=== PATIENT | male | born 2000 | race Two or more races ===

== ENCOUNTER 2024-12-24 08:51 | Emergency (ER) | payer MEDICAID, SELFPAY ==
[2024-12-24 08:52] VITALS: BMI 39.4
[2024-12-24 09:15] VITALS: BP 123/80; PULSE 87; RESP 20; TEMP 36.9; O2SAT 97; BMI 38.7
--- NOTE | 2024-12-24 09:21 | XR_ITS ---
Examination: CT abdomen and pelvis without contrast. Coronal 3-D reconstructions. Sagittal 2-D reconstructions. Date and time of exam:December 24, 2024 1023 hours INDICATIONS: Onset left-sided flank pain beginning 2 days ago CTDI: vol (mGy): 13.3 DLP: (mGycm): 837 Technique: Axial images of the abdomen have been obtained, 3 mm slice thickness Intravenous contrast material has not been administered. Low dose protocols were performed. One or more of the following dose reduction techniques were used; automated exposure control, adjustment of the mA and/or KV according to patient size, use of iterative reconstruction technique. Findings: Diffuse fatty infiltration throughout the liver no focal liver or splenic lesions No gallstones No pancreatic or adrenal mass No renal or ureteral calculi, no hydronephrosis No pericecal inflammatory change No diverticulitis Intact urinary bladder IMPRESSION: No renal or ureteral calculi, no hydronephrosis No perinephric stranding No bladder mass or bladder calculi
--- NOTE | 2024-12-24 09:22 | PD.EDRME ---
Rapid Medical Screening Exam RME Arrival date/time: 12/24/24 08:51 24-year-old male with no known medical history presents to the emergency room with a chief complaint of left flank pain and back pain x 1 day I have greeted and performed a focused initial assessment of this patient. A comprehensive ED assessment and evaluation of the patient, analysis of all test results, and completion of the medical decision making process will be conducted by additional ED providers. Chief Complaint: Back Pain/Injury Time Seen by Provider: 12/24/24 09:14 Vital signs: Vital Signs Temperature 98.4 F 12/24/24 09:15 Pulse Rate 87 12/24/24 09:15 Respiratory Rate 20 12/24/24 09:15 Blood Pressure 123/80 12/24/24 09:15 Pulse Oximetry (%) 97 12/24/24 09:15 Oxygen Delivery Method Room Air 12/24/24 09:15 Vital signs reviewed by provider: Yes
[2024-12-24] MEDS: KETOROLAC INJ 60 MG/2 ML VIAL 30 MG IM (09:33)
[2024-12-24 10:01] LABS: Basophils % (Auto) 0 % (0-2.5); Eosinophils # (Auto) 0.1 Thou/mm3 (0.0-0.5); Eosinophils % (Auto) 3 % (0-10); Hematocrit 43.6 % (41.0-53.0); Hemoglobin 14.7 g/dL (13.5-16.0); Immature Granulocytes % (Auto) 0 % (0-0); Immature Granulocytes Auto 0.01 Thou/mm3 (0.00-0.00); Lymphocytes # (Auto) 1.7 Thou/mm3 (1.0-4.8); Lymphocytes % (Auto) 38 % (10-50); Mean Corpuscular HGB Conc 33.7 g/dl (31.0-37.0); Mean Corpuscular Hemoglobin 28.2 pg (25.0-35.0); Mean Corpuscular Volume 84 fL (80-100); Monocytes # (Auto) 0.4 Thou/mm3 (0.0-0.8); Monocytes % (Auto) 9 % (0-12); Neutrophils # (Auto) 2.2 Thou/mm3 (1.8-7.7); Neutrophils % (Auto) 49 % (37-80); Nucleated Red Blood Cell % 0 /100 WBC (0); Platelet Count 233 Thou/mm3 (140-440); RDW Standard Deviation 39.4 fL (35.1-43.9); Red Blood Count 5.21 Miln/mm3 (4.50-5.90); White Blood Count 4.6 Thou/mm3 (3.8-10.6)
[2024-12-24 10:52] LABS: Collection Type, Urine Clean Catch; Squamous Epithelial Cell,Urine 0 /hpf (0-5)
[2024-12-24 11:05] VITALS: BP 117/74; PULSE 67; RESP 18; TEMP 37.1; O2SAT 98
[2024-12-24 11:07] LABS: Alanine Aminotransferase 53 U/L (10-49); Albumin, Serum 4.7 gm/dL (3.5-5.0); Albumin/Globulin Ratio 1.6 (1.2-2.2); Alkaline Phosphatase 61 U/L (46-116); Anion Gap 8 (7-16); Aspartate Amino Transferase 40 U/L (0-34); BUN/Creatinine Ratio 13 Ratio (12-20); Bilirubin,Total 0.4 mg/dL (0.3-1.2); Blood Urea Nitrogen 10 mg/dL (9-23); Calcium 8.8 mg/dL (8.3-10.6); Calcium (Corrected) 8.8 mg/dL (8.5-10.1); Carbon Dioxide 26.9 mMol/L (20.0-31.0); Chloride 106 mMol/L (98-107); Creatinine (Component) 0.8 mg/dL (0.6-1.3); Estimated Creatinine Clearance 183.6 mL/min (>60); Globulin 2.9 gm/dL (2.3-3.5); Glucose 97 mg/dL (74-106); Lipase 30 U/L (12-53); Osmolality,Calculated 280 (275-295); Potassium 4.4 mMol/L (3.4-5.1); Sodium 141 mMol/L (136-145); Total Protein 7.6 gm/dL (5.7-8.2); eGFR > 60 See Note
[2024-12-24 11:23] LABS: Bilirubin,Urine Negative (Negative); Blood,Urine Negative (Negative); Clarity,Urine Clear (Clear/Hazy); Color,Urine Yellow (Lt Yel-Yel); Glucose, Urine Negative (Negative); Hyaline Casts,Urine < 1 /hpf (0-1); Ketones,Urine Negative (Negative); Leukocyte Esterase,Urine Negative (Negative); Nitrite,Urine Negative (Negative); Protein,Urine Trace (Neg - Trace); RBC,Urine 3 /hpf (0-3); Specific Gravity,Urine 1.028 (1.001-1.035); Urobilinogen,Urine Negative mg/dL (0.0-1.0); WBC,Urine 1 /hpf (0-5)
[2024-12-24 13:10] VITALS: BP 120/81; PULSE 63; RESP 18; TEMP 36.6; O2SAT 99
--- NOTE | 2024-12-24 13:18 | EDNOTE_ITS ---
ED General RME/HPI General Chief complaint: Back Pain/Injury Stated complaint: L LOWER BACK PAIN SINCE LAST NIGHT Time Seen by Provider: 12/24/24 09:14 Arrival date/time: 12/24/24 08:51 CC: Left low back pain HPI ongoing since last night. Patient was vacuuming then it started happening. Patient put IcyHot on it and to generic ibuprofen or Tylenol is not sure which 1. Patient continues to have pain. Patient denies bowel or bladder symptoms saddle anesthesia numbness tingling or weakness in the lower extremities. They denies painful urination bloody urination nausea vomiting or diarrhea. Patient reports significant improvement after the injection the medicines while in the waiting room. RME / HPI RME / HPI narrative: 12/24/24 08:51 24-year-old male with no known medical history presents to the emergency room with a chief complaint of left flank pain and back pain x 1 day I have greeted and performed a focused initial assessment of this patient. A comprehensive ED assessment and evaluation of the patient, analysis of all test results, and completion of the medical decision making process will be conducted by additional ED providers. Related Data Previous Rx's ?Medication ?Instructions ?Recorded cyclobenzaprine 10 mg tablet 10 mg PO HS #10 tabs 12/06 05/02 meloxicam 7.5 mg tablet 7.5 mg PO QDAY #10 tabs 12/06 05/02 Allergies Allergy/AdvReac Type Severity Reaction Status Date / Time No Known Allergies Allergy Verified 12/24/24 08:55 Review of Systems Review of Systems Narrative Review of Systems: GEN: No fever, no chills, no weight loss EYES: No discharge, no visual changes, no pain HEENT: No ear pain, no congestion, no sore throat PULM: No shortness of breath, no cough, no congestion CV: No chest pain, no dyspnea on exertion, no palpitations GI: No nausea, no vomiting, no diarrhea, no pain, no constipation : No frequency, no urgency, no dysuria MUSC/SKEL: No joint pain, + back pain SKIN: No rash PSYCH: No hallucinations, no depression HEME/LYMPH: No easy bleeding or bruising tendencies NEURO: No weakness, no headache Past Medical History Social History SMOKING STATUS: Former smoker ED Exam Narrative Physical exam: [General: Obese not in any acute distress Head normocephalic HEENT: Within acceptable limits Neck is supple nontender Chest equal chest rise nontender to palpation Respiratory: Clear to auscultation no wheezes crackles or rubs CV: Rate rhythm is regular no murmurs rubs or clicks Abdomen is distended secondary to body habitus soft nontender no masses positive bowel sounds all 4 quadrants Back: Left lumbar paraspinal tenderness with palpation no spinous process tenderness no right-sided tenderness no thoracic or cervical tenderness. Skin: Intact no petechiae rash induration ulceration or crepitus Extremities: Moving all extremity against resistance cap refill less than 2 seconds neurosensory intact Neuro: Awake alert oriented x3 Glascow coma 15 no focal deficits] Course Quality Measures none Orders Category Date Time Status CT abdomen pelvis wo con Stat Exams 12/24/24 09:21 Completed CBC Stat Lab 12/24/24 09:41 Completed CMP [Comprehensive Metabolic Panel] Stat Lab 12/24/24 09:41 Completed Lipase Stat Lab 12/24/24 09:41 Completed UA [Urinalysis] Stat Lab 12/24/24 10:40 Completed Urine Culture Stat Lab 12/24/24 10:40 Received Ketorolac Inj [Toradol Inj] Med 12/24/24 09:21 Discontinued 30 mg IM X1 ONE Vital Signs Vital signs: Vital Signs Temperature 98.4 F 12/24/24 09:15 Pulse Rate 87 12/24/24 09:15 Respiratory Rate 20 12/24/24 09:15 Blood Pressure 123/80 12/24/24 09:15 Pulse Oximetry (%) 97 12/24/24 09:15 Oxygen Delivery Method Room Air 12/24/24 09:15 Discharge Plan Plan Patient Disposition: HOME (Self Care) Prescriptions/Referrals Prescriptions/Med Rec: New cyclobenzaprine 10 mg tablet 10 mg PO HS Qty: 10 0RF meloxicam 7.5 mg tablet 7.5 mg PO QDAY Qty: 10 0RF Referrals: Blayne Womack MD [Physician] - In 1 week No Primary/Family,Physician [Primary Care Provider] - In 1 week Problem List Clinical Impression: Strain of lumbar region Patient/Caregiver Discharge Instructions Other Activity Instructions:: Take medication prescribed for temporary relief if there is a worsening of symptoms with follow-up with your primary care doctor. Education Materials: ED Back Sprain/Strain Print Language: Luxembourgish Stand Alone Forms: [employer] Info., Patient Portal Info Letter, Work/School Release PA/IMPERSONATOR CHARACTER Supervising Physician PA/IMPERSONATOR CHARACTER Supervising Physician: Vero Lucas ENP MDM Clinical Information Provided by: patient Medical Records reviewed [facility] Meds/Rx considered, not ordered None Labs/Rad/Tests considered, not ordered None Chronic Illness/Social Conditions which may negatively complicate care or outcome(s)-explain: None or not applicable EKG EKG not done Labs Labs: interpreted by me Lab(s) Interpretation(s): CBC shows no acute leukocytosis anemia thrombocytopenia CMP shows no significant electrolyte imbalances or renal parent very mild AST and ALT elevation no other transaminitis or T. bili elevation. Urine is negative for any acute finding Imaging Imaging Interpretation(s): CT of the abdomen pelvis is negative as interpreted by me read by radiology. Medication Administration(s) Medication Administration History Discontinued Medications Ketorolac Tromethamine (Ketorolac Inj 60 Mg/2 Ml Vial) 30 mg IM X1 ONE Stop: 12/24/24 09:22 Last Admin: 12/24/24 09:33 Dose: 30 mg Documented By: DO Diagnosis Differential Diagnosis ED Complaint MDM: Urolithiasis cholecystitis hydroureter hydronephrosis
== END 2024-12-24 13:34 | disposition home or self-care (01) ==
PROVIDERS: Nurse Practitioner Family; Emergency Provider Emergency Medicine
DX: S39.012A Strain of muscle, fascia and tendon of lower back, initial encounter (principal); R10.9 Unspecified abdominal pain; X58.XXXA Exposure to other specified factors, initial encounter; Y93.E3 Activity, vacuuming
CPT/HCPCS: 36415; 74176; 80053; 81001; 83690; 85025; 87086; 96372; 99284; J1885

== ENCOUNTER 2025-01-21 23:33 | Emergency (ER) | payer MEDICAID, SELFPAY ==
[2025-01-21 23:33] VITALS: BMI 39.4
[2025-01-21 23:57] VITALS: BP 129/68; PULSE 94; RESP 18; TEMP 36.7; O2SAT 95
--- NOTE | 2025-01-22 00:18 | EDNOTE_ITS ---
ED Back Injury Pain RME/HPI General Chief Complaint: Back Pain/Injury Stated Complaint: RIGHT SCIATIC PAIN Time Seen by Provider: 01/22/25 00:17 Source: patient Arrival date/time: 01/21/25 23:33 Mode of arrival: ambulatory Limitations: no limitations RME / HPI RME / HPI Narrative: 24-year-old male presents to the emergency department with a complaint of his sciatica as acting up. Denies trauma, denies heavy lifting, denies excessive exercise, denies excessive ambulation. MD Complaint: back pain Onset (ago): day(s) (X 1 day) Duration: constant Similar Symptoms Previously: Yes Location: lumbar spine Severity: moderate Severity scale (1-10): 5 Related Data Previous Rx's ?Medication ?Instructions ?Recorded cyclobenzaprine 10 mg tablet 10 mg PO HS #10 tabs 12/06 05/02 meloxicam 7.5 mg tablet 7.5 mg PO QDAY #10 tabs 12/06 05/02 cyclobenzaprine 10 mg tablet 10 mg PO HS #20 tabs 01/06 03/01 naproxen 500 mg tablet 500 mg PO BID #20 tabs 01/22 Allergies Allergy/AdvReac Type Severity Reaction Status Date / Time No Known Allergies Allergy Verified 01/21/25 23:34 Review of Systems Constitutional Constitutional: Reports system reviewed and no additional complaints, except as documented Eyes Eyes: Reports system reviewed and no additional complaints, except as documented, Denies dry eyes, Denies exophthalmos and Reports floaters Cardiovascular Cardiovascular: Denies chest pain with activity and Denies claudication ED Exam Narrative Physical exam: Leg raises are negative for radiculopathy positive for low back pain. Patient is able to flex at the waist and touch his toes. Patient is able to twist left and right as well as bend left and right. Complains of back pain upon doing so. Spine is midline and patient ambulates without assistance. There is no apparent neurofocal deficit present. General Limitations: Present no limitations General appearance: Present alert and in no apparent distress Head Head exam: Present atraumatic Eye Eye exam: Present normal appearance and EOMI ENT ENT exam: Present normal exam, normal oropharynx and mucous membranes moist Neck Neck exam: Present normal inspection, full ROM and trachea midline Chest Chest inspection: Present normal inspection Respiratory Respiratory exam: Present normal lung sounds bilaterally Cardiovascular Cardiovascular exam: Present regular rate, normal rhythm and normal heart sounds Abdominal Exam Abdominal exam: Present soft and normal bowel sounds Extremities Exam Extremities exam: Present normal inspection and full ROM Back Exam Back exam: Present normal inspection and full ROM Neurological Exam Neurological exam: Present alert, oriented X3 and CN II-XII intact Psychiatric Psychiatric exam: Present normal affect and normal mood Skin Skin exam: Present warm, dry, intact and normal color Course Course Course Narrative: Patient will have Toradol 30 mg IM. Quality Measures none Orders Category Date Time Status Ketorolac Inj [Toradol Inj] Med 01/22/25 00:18 Discontinued 30 mg IM X1 ONE Ordered Vital Signs Vital signs: Vital Signs Temperature 98.1 F 01/21/25 23:57 Pulse Rate 94 01/21/25 23:57 Respiratory Rate 18 01/21/25 23:57 Blood Pressure 129/68 01/21/25 23:57 Pulse Oximetry (%) 95 01/21/25 23:57 Oxygen Delivery Method Room Air 01/21/25 23:57 Pulse ox room air is 95% Back Pain / Injury MDM Narrative MDM Narrative:: Patient will have Toradol 30 mg and I will send to the pharmacy of his choice Naprosyn 500 mg 1 p.o. twice daily #20 and Flexeril 10 mg 1 p.o. 3 times daily #10. Patient will be discharged in no apparent distress and he is follow-up primary care physician within a week of today's visit or otherwise if he is worse he may return. Patient data External records reviewed:: Other (specify) Clinical information provided by:: none Social determinants that could affect healthcare access:: none Patient has the following chronic illnesses:: Sciatica How is presenting disease/condition affected by chronic disease/condition?: caused by (Movement) Evaluation data The following diagnostics were reviewed and interpreted by me:: other (specify) (N/A) Lab and/or radiology exams considered but not ordered:: N/A Interpretation Summary: N/A Medications / Prescriptions Medications or Prescriptions considered but not ordered:: N/A Medication administrations:: Medication Administration History Discontinued Medications Ketorolac Tromethamine (Ketorolac Inj 60 Mg/2 Ml Vial) 30 mg IM X1 ONE Stop: 01/22/25 00:19 Given Consultations Consultation(s) initiated? (list below): No Diagnosis Differential diagnosis back pain/injury: lumbar radiculopathy, sciatica, strain of lumbar region, renal colic and pyelonephritis Most likely diagnosis given after review of the tests above:: N/A Admission Indicated Admission indicated?: not indicated Admission Request Was there a request for admission?: No Admission Attestation Admission request attestation: N/A Disposition Plan Disposition Plan: Discharge Discharge Attestation Discharge Attestation: The patient and all family members were given an opportunity to ask questions and understood the discharge instructions. Discharge instructions specifically effects, indications for sooner follow up or return to the emergency department, and the expected course of current diagnosis. Patient condition: Stable Discharge Plan Plan Patient Disposition: HOME (Self Care) Discharge Disposition comment: Discharge in no apparent distress Patient condition on transfer: Stable Prescriptions/Referrals Prescriptions/Med Rec: New cyclobenzaprine 10 mg tablet 10 mg PO HS Qty: 20 0RF naproxen 500 mg tablet 500 mg PO BID Qty: 20 0RF No Action cyclobenzaprine 10 mg tablet 10 mg PO HS Qty: 10 0RF meloxicam 7.5 mg tablet 7.5 mg PO QDAY Qty: 10 0RF Problem List Clinical Impression: Sciatica Patient/Caregiver Discharge Instructions Discharge Activity: activity as tolerated Education Materials: Common Spine and Disk Problems Print Language: Prydeinig Stand Alone Forms: [employer] Info., Patient Portal Info Letter PA/RESTORATION OFFICER Supervising Physician PA/RESTORATION OFFICER Supervising Physician: Eusebia
[2025-01-22] MEDS: KETOROLAC INJ 60 MG/2 ML VIAL 30 MG IM (00:27)
== END 2025-01-22 00:43 | disposition home or self-care (01) ==
LOC: SERX 01-22 01:13
PROVIDERS: Emergency Provider Emergency Medicine; PCP Internal Medicine
DX: M54.41 Lumbago with sciatica, right side (principal)
CPT/HCPCS: 96372; 99283; J1885

== ENCOUNTER 2025-04-25 17:59 | Emergency (ER) | payer MEDICAID, SELFPAY ==
[2025-04-25 18:25] VITALS: BP 138/78; PULSE 85; RESP 17; TEMP 36.9; O2SAT 96
--- NOTE | 2025-04-25 18:26 | XR_ITS ---
Examination: Wrist, left 3 views Technique: Wrist AP, oblique, lateral 3 views Date and time of exam: April 25, 2025 1841 hrs. Indications: Patient fell today with into the wrist, wrist pain. Findings: No acute fracture No dislocation No foreign body Impression: No acute fracture
--- NOTE | 2025-04-25 18:43 | EDNOTE_ITS ---
Upper Extremity Injury RME/HPI General Chief Complaint: Hand/Wrist Problems Stated Complaint: LEFT WRIST PAIN Time Seen by Provider: 04/25/25 18:34 Arrival date/time: 04/25/25 17:59 25M with no significant PMH presents to ED with L wrist pain after slip and fall in shower. No other complaints/known injuries. Limitations: no limitations Related Data Previous Rx's ?Medication ?Instructions ?Recorded cyclobenzaprine 10 mg tablet 10 mg PO HS #10 tabs 12/06 05/02 meloxicam 7.5 mg tablet 7.5 mg PO QDAY #10 tabs 12/06 05/02 cyclobenzaprine 10 mg tablet 10 mg PO HS #20 tabs 01/06 03/01 naproxen 500 mg tablet 500 mg PO BID #20 tabs 01/22 Allergies Allergy/AdvReac Type Severity Reaction Status Date / Time No Known Allergies Allergy Verified 01/21/25 23:34 Review of Systems Review of Systems Systems Reviewed: All systems reviewed, normal except as documented Musculoskeletal Musculoskeletal: Reports as per HPI and Reports arthralgias Past Medical History Social History SMOKING STATUS: Current every day smoker ED Exam General Limitations: Present no limitations General appearance: Present alert and in no apparent distress Head Head exam: Present atraumatic Neck Neck exam: Present normal inspection, full ROM and trachea midline Chest Chest inspection: Present normal inspection and symmetric chest wall rise Extremities Exam Extremities exam: Present full ROM Expanded Upper Extremity Exam Forearm/Wrist exam: Present full ROM (L) and tenderness Neurological Exam Neurological exam: Present alert, oriented X3 and CN II-XII intact Psychiatric Psychiatric exam: Present normal affect and normal mood Skin Skin exam: Present warm, dry, intact and normal color Course Quality Measures none Orders Category Date Time Status benjamin wrap [Splint / Immobilizer] STAT Care 04/25/25 19:21 Completed XR wrist comp LT min 3V Stat Exams 04/25/25 18:26 Completed Vital Signs Vital signs: Vital Signs Temperature 98.4 F 04/25/25 18:25 Pulse Rate 85 04/25/25 18:25 Respiratory Rate 17 04/25/25 18:25 Blood Pressure 138/78 H 04/25/25 18:25 Pulse Oximetry (%) 96 04/25/25 18:25 Oxygen Delivery Method Room Air 04/25/25 18:25 O2 at 96% on RA and WNLs Extremity Injury MDM Narrative MDM Narrative:: 25M with no significant PMH presents to ED with L wrist pain after slip and fall in shower. No other complaints/known injuries. Physical exam reveals L wrist tenderness. ROM intact. Patient is afebrile, calm, and alert. XR no fx. Given BENJAMIN and licensed professional counselor. Patient data External records reviewed:: [facility] previous records Clinical information provided by:: patient Social determinants that could affect healthcare access:: none Patient has the following chronic illnesses:: none How is presenting disease/condition affected by chronic disease/condition?: no chronic disease Evaluation data The following diagnostics were reviewed and interpreted by me:: radiology exam(s) Lab and/or radiology exams considered but not ordered:: ordered Interpretation Summary: above Medications / Prescriptions Medications or Prescriptions considered but not ordered:: not ordered Medication administrations:: n/a Consultations Consultation(s) initiated? (list below): No Diagnosis Upper Extremity Injury Differential Diagnosis: sprain and strain of wrist, fracture of wrist, finger sprain, dislocation of finger, Colles' fracture and fracture of hand Most likely diagnosis given after review of the tests above:: wrist sprain and strain Admission Indicated Admission indicated?: not indicated Admission Request Was there a request for admission?: No Disposition Plan Disposition Plan: Discharge Discharge Attestation Discharge Attestation: The patient and all family members were given an opportunity to ask questions and understood the discharge instructions. Discharge instructions specifically effects, indications for sooner follow up or return to the emergency department, and the expected course of current diagnosis. Patient condition: Stable Discharge Plan Plan Patient Disposition: HOME (Self Care) Discharge Disposition comment: Stable Prescriptions/Referrals Prescriptions/Med Rec: No Action cyclobenzaprine 10 mg tablet 10 mg PO HS Qty: 10 0RF meloxicam 7.5 mg tablet 7.5 mg PO QDAY Qty: 10 0RF cyclobenzaprine 10 mg tablet 10 mg PO HS Qty: 20 0RF naproxen 500 mg tablet 500 mg PO BID Qty: 20 0RF Referrals: No Primary/Family,Physician [Primary Care Provider] - In 1 week Problem List Clinical Impression: Sprain and strain of wrist Patient/Caregiver Discharge Instructions Education Materials: ED Wrist Sprain Additional Instructions: Please follow-up with PCP within 24-48 hours and return immediately if symptoms worsen. If problem persists, recommend outpatient PT and/or MRI follow-up. In the meantime, rest, use ice/heat, and/or compression. Print Language: Belarusian Stand Alone Forms: Work/School Release, Patient Portal Info Letter PA/FACING BASTER JUMPBASTING Supervising Physician PA/FACING BASTER JUMPBASTING Supervising Physician: Dr. Allen
== END 2025-04-25 19:38 | disposition home or self-care (01) ==
PROVIDERS: Emergency Provider Emergency Medicine
DX: S63.502A Unspecified sprain of left wrist, initial encounter (principal); S66.912A Strain of unspecified muscle, fascia and tendon at wrist and hand level, left hand, initial encounter; W18.2XXA Fall in (into) shower or empty bathtub, initial encounter
CPT/HCPCS: 73110; 99284